=== PATIENT | male | born 1960 | race Caucasian/White ===

== ENCOUNTER 2017-06-08 08:59 | Emergency (ER) | payer OTHER, MEDICAID ==
[~2017-06-08] VITALS: Ht 185.4 cm; Wt 82.1 kg
[~2017-06-08 08:59] MED LIST: ACET-2605 PO
--- NOTE | 2017-06-08 09:47 | NUR ---
Patient discharged to home in stable conditon. Written and verbal after care instructions given to patient. Patient verbalizes understanding of instructions.
== END 2017-06-08 09:48 | disposition home or self-care (01) ==
LOC: ER 09:00
DX: S63.502A Unspecified sprain of left wrist, initial encounter (principal); B35.3 Tinea pedis; B95.8 Unspecified staphylococcus as the cause of diseases classified elsewhere; G89.29 Other chronic pain; Z79.899 Other long term (current) drug therapy; X58.XXXA Exposure to other specified factors, initial encounter; Y93.89 Activity, other specified; Y92.89 Other specified places as the place of occurrence of the external cause; Y99.8 Other external cause status
CPT/HCPCS: 73090; A4663

== ENCOUNTER 2018-01-06 08:50 | Emergency (ER) | payer MEDICAID, OTHER ==
[~2018-01-06] VITALS: Ht 185.4 cm; Wt 81.6 kg
[2018-01-06 09:33] VITALS: BP 154/84
--- NOTE | 2018-01-06 09:33 | NUR ---
Patient discharged to home in stable conditon. Written and verbal after care instructions given. Patient verbalizes understanding of instructions.
== END 2018-01-06 09:34 | disposition home or self-care (01) ==
LOC: ER 08:50
DX: M77.9 Enthesopathy, unspecified (principal); I10 Essential (primary) hypertension
CPT/HCPCS: A4663

== ENCOUNTER 2018-07-19 11:13 | Emergency (ER) | payer OTHER ==
[~2018-07-19] VITALS: Ht 185.4 cm; Wt 86.2 kg
--- NOTE | 2018-07-19 11:48 | NUR ---
Patient discharged to home in stable conditon. Written and verbal after care instructions given. Patient verbalizes understanding of instructions.pt walked in steady gait.
== END 2018-07-19 11:50 | disposition home or self-care (01) ==
LOC: ER 11:15
DX: H10.9 Unspecified conjunctivitis (principal); I10 Essential (primary) hypertension; Z79.899 Other long term (current) drug therapy

== ENCOUNTER 2018-07-21 09:42 | Emergency (ER) | payer OTHER ==
[~2018-07-21] VITALS: Ht 185.4 cm; Wt 86.2 kg
[2018-07-21] MEDS ORDERED: TETRACAINE HCL 0.5% OPHT DROP 2 ML BOTTLE ONE (10:01)
[2018-07-21] MEDS ORDERED: FLUORESCEIN SODIUM 1 MG STRIP ONE (10:02)
--- NOTE | 2018-07-21 10:29 | NUR ---
Patient discharged to home in stable conditon. Written and verbal after care instructions given. Patient verbalizes understanding of instructions.PT WALKS IN STEADY GAIT.
== END 2018-07-21 10:46 | disposition home or self-care (01) ==
LOC: ER 09:42
DX: T15.01XA Foreign body in cornea, right eye, initial encounter (principal); I10 Essential (primary) hypertension; Z79.899 Other long term (current) drug therapy; X58.XXXA Exposure to other specified factors, initial encounter; Y93.89 Activity, other specified; Y92.89 Other specified places as the place of occurrence of the external cause; Y99.8 Other external cause status
CPT/HCPCS: A4663

== ENCOUNTER 2018-08-27 19:28 | Emergency (ER) | payer OTHER ==
[~2018-08-27] VITALS: Ht 185.4 cm; Wt 86.2 kg
--- NOTE | 2018-08-27 20:00 | NUR ---
Dr. Odell at bedside for MSE.
--- NOTE | 2018-08-27 20:10 | NUR ---
Patient discharged to home in stable conditon. Written and verbal after care instructions given. Patient verbalizes understanding of instructions. Pt ambulated out of ER with steady gait, no acute signs of distress, VSS, all belongings taken.
[2018-08-27 20:11] VITALS: BP 155/100
== END 2018-08-27 20:12 | disposition home or self-care (01) ==
LOC: ER 19:28
DX: H10.32 Unspecified acute conjunctivitis, left eye (principal); I10 Essential (primary) hypertension; F32.9 Major depressive disorder, single episode, unspecified; Z79.899 Other long term (current) drug therapy
CPT/HCPCS: A4663